=== PATIENT | female | born 2000 | race African-American/Black ===

== ENCOUNTER → 2024-01-31 13:41 | Outpatient (REF) | payer OTHER, SELFPAY ==
[2024-01-31 18:09] LABS: Hepatitis B Surface Antibody Negative
[2024-01-31 22:14] LABS: Rubella Positive
[2024-02-02 14:45] LABS: Mumps Virus IgG Positive; Rubeola (Measles) IgG Positive; Varicella Zoster IgG (VZV) Negative
== END ==
LOC: REG 13:41
PROVIDERS: ATTENDING PHYSICIAN Nurse Practitioner
DX: Z23 Encounter for immunization (principal)
CPT/HCPCS: 86706; 86735; 86762; 86765; 86787

== ENCOUNTER → 2024-02-04 09:08 | Outpatient (REF) | payer OTHER, SELFPAY ==
[2024-02-06 14:39] LABS: Quantiferon Mitogen minus NIL 9.96 IU/mL; Quantiferon NIL 0.04 IU/mL; Quantiferon TB Gold Plus Negative (Negative)
== END ==
LOC: OHS 09:08
PROVIDERS: ATTENDING PHYSICIAN Nurse Practitioner Family
DX: Z23 Encounter for immunization (principal)
CPT/HCPCS: 36415; 86480